=== PATIENT | female | born 1945 | race Caucasian/White ===

== ENCOUNTER → 2017-11-03 | Outpatient (CLI) | payer MEDICARE, BC ==
--- NOTE | 2017-11-03 14:39 | RADRPT ---
PROCEDURE: Whole body bone scan study CLINICAL INDICATION: 72 -year-old patient with costochondritis, complaining of bony pain. TECHNIQUE: Following the intravenous injection of 25.3 mCi of Tc-99m MDP, whole body anterior and posterior planar images were obtained along with spot views of the chest. COMPARISON: The patient does not have any prior relevant imaging studies. FINDINGS: Small focus of increased activity seen in the left sternoclavicular joint region. Mildly nonhomogeneous distribution of activity seen throughout the spine. Mildly increased uptake is noted in both shoulders and feet. No other definite abnormal areas of increased activity or asymmetries are visualized in the study an d distribution of radionuclide is homogeneous in the skull, spine, rib cages, sternum, pelvis and vi sualized portions of the upper and lower extremities. Of incidental note, there is no evidence of mass abnormalities of the kidneys or obstructive uropath y. IMPRESSION: 1. 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 2. No other definite skeletal abnormalities. RPTAT: HH .Seda Hernandez MD, Date Time Electronically viewed and signed by .Seda Hernandez MD, on 11/03/2017 14:38 .L/
== END | disposition home or self-care (01) ==
LOC: NUC 08:40
PROVIDERS: ATTEND Orthopaedic Surgery
DX: M94.0 Chondrocostal junction syndrome [Tietze] (principal)
CPT/HCPCS: 78306; A9503